=== PATIENT | female | born 1975 | race Caucasian/White ===

== ENCOUNTER 2016-11-08 18:10 | Emergency (ER) | payer MEDICARE, OTHER ==
[2016-11-08 12:18] LABS: BLOOD UREA NITROGEN 20 mg/dL (7-18); CALCIUM 8.4 mg/dL (8.7-10.7); CARBON DIOXIDE 30 mmol/L (21-32); CREATININE 0.7 mg/dL (0.6-1.3); GLUCOSE,RANDOM 262 mg/dL (70-99); MAGNESIUM 1.7 mg/dL (1.8-2.4); SODIUM 138 mmol/L (136-145)
[~2016-11-08 18:10] MED LIST: AUGMENTIN 875-1 EACH; AUGMENTIN 875-1 EACH PO; BUPRENORPHINE HC8 MG SL; CALCIUM + VITA1 EACH PO; CLARITIN10 MG PO; COLACE100 MG PO; CYMBALTA30 MG PO; FLONASE 0.05% N16 GM; FOSAMAX70 MG PO; LEVEMIR INJ; LYRICA200 MG PO; MONTELUKAST SOD10 MG PO; NEXIUM40 MG PO; NICODERM 7MG PAT1 EA TD; NITROQUICK0.4 MG SL; NOVOLOG100 UNIT/2 SQ; PHOSPHA 250 NE250 MG PO; SEROQUEL400 MG PO; ZANTAC150 MG PO
[2016-11-08 19:56] LABS: BASO % 0.4 % (0.1-1.2); EOS # 0.3 10_X3_uL (0.0-0.4); EOS % 3.4 % (0.7-5.8); GRAN % 59.1 % (34.0-71.1); HEMATOCRIT 46.8 % (34-45); HEMOGLOBIN 15.2 g/dL (11.2-15.7); LYMPH # 2.4 10_X3_uL (1.2-3.7); LYMPH % 27.9 % (19.3-51.7); MEAN CORPUSCULAR HEMOGLOBIN 32.4 pg (27.0-33.0); MEAN CORPUSCULAR HGB CONC 32.5 g/dL (32.0-36.0); MEAN CORPUSCULAR VOLUME 99.8 fL (79-95); MEAN PLATELET VOLUME 11.7 fl (7.5-11.5); MONO # 0.8 10_X3_uL (0.2-0.9); MONO % 9.2 % (4.7-12.5); PLATELET COUNT 154 x10_3/uL (182-369); RED BLOOD COUNT 4.69 x10_6/uL (3.9-5.2); RED CELL DISTRIBUTION WIDTH 14.1 % (11.7-14.4); WHITE BLOOD COUNT 8.5 x10_3/uL (4.0-10.0)
[2016-11-08 20:18] LABS: ALBUMIN 3.6 gm/dL (3.4-5.0); ALKALINE PHOSPHATASE 177 U/L (50-136); ALT/SGPT 27 U/L (3.5-33.9); AST/SGOT 32 U/L (7.04-26.96); BILIRUBIN,TOTAL 0.23 mg/dL (0.0-1.0); BLOOD UREA NITROGEN 20 mg/dL (7-18); CALCIUM 8.4 mg/dL (8.7-10.7); CARBON DIOXIDE 30 mmol/L (21-32); CREATININE 0.7 mg/dL (0.6-1.3); GLUCOSE,RANDOM 340 mg/dL (70-99); LIPASE 24 U/L (6.75-60.75); POTASSIUM 4.6 mmol/L (3.5-5.1); SODIUM 138 mmol/L (136-145); TOTAL PROTEIN 6.5 gm/dL (6.4-8.2)
[2016-11-08 20:39] LABS: ARTERIAL BLOOD GAS HCO3 30.2 mmol/L (22-26); ARTERIAL BLOOD GAS PCO2 58.4 mmHg (32-45); ARTERIAL BLOOD GAS pH 7.33 (7.35-7.45)
[2016-11-08 20:42] LABS: ARTERIAL BLD GAS O2 SATURATION 72.6 % (94-98)
[2016-11-08 20:48] LABS: URINE BILIRUBIN NEGATIVE (NEGATIVE); URINE BLOOD TRACE (NEGATIVE); URINE KETONE NEGATIVE (NEGATIVE); URINE LEUKOCYTE ESTERASE 2+ (NEGATIVE); URINE NITRATE NEGATIVE (NEGATIVE); URINE PROTEIN TRACE (NEGATIVE); UROBILINOGEN NORMAL mg/dL (<1.0)
[2016-11-08 21:05] LABS: URINE GLUCOSE (UA) 1000 mg/dL (NORMAL); URINE WBC TNTC /[HPF] (0-5)
[2016-11-08 21:06] LABS: URINE BACTERIA 1+ (NONE SEEN); URINE SQUAMOUS EPITHELIAL CELL TNTC /[HPF] (NONE SEEN)
== END 2016-11-08 22:23 ==
LOC: ER 18:10 → EDSTATUS 18:10 → ER 22:23
PROVIDERS: Family Medicine; General Practice
DX: R19.00 Intra-abdominal and pelvic swelling, mass and lump, unspecified site (principal); R18.8 Other ascites; E11.65 Type 2 diabetes mellitus with hyperglycemia; M54.9 Dorsalgia, unspecified; E87.6 Hypokalemia; Z86.19 Personal history of other infectious and parasitic diseases; F11.21 Opioid dependence, in remission; F17.210 Nicotine dependence, cigarettes, uncomplicated; Z88.1 Allergy status to other antibiotic agents; Z79.899 Other long term (current) drug therapy
CPT/HCPCS: 36415; 36600; 71250; 72128; 72131; 80048; 80053; 81001; 82803; 82962; 83605; 83690; 83735; 85025; 87040; 93005; 99070; 99284; 99284-25